=== PATIENT | female | born 1960 ===

== ENCOUNTER 2017-02-24 11:13 | Emergency (ER) | payer OTHER ==
[2017-02-24 11:24] VITALS: BMI 20.5
[2017-02-24 11:28] VITALS: RESP 18; O2SAT 98
[2017-02-24] MEDS ORDERED: TDAP Vaccine 0.5 mL Syr IM ONE (11:59)
--- NOTE | 2017-02-24 12:03 | ED PDOC ---
Arrival/HPI - General Chief Complaint: Abnormal Skin Integrity Time Seen by Provider: 02/24/17 11:58 Historian: Patient - History of Present Illness Narrative History of Present Illness (Text): 02/24/17 11:59 56 y/o female, no pmh, nkda, last tetanus over 10 years ago, post menopausal, c/ o rt. hand 3rd digit finger laceration x 1 hour. Pt. stated that she was cleaning the stove, accidentally sliced on the edge of the metal, sustained laceration and bleeding, no numbness or tinging, no difficulty bending or extending, no rash, no other medical or psychological complaints. Past Medical History - Provider Review Nursing Documentation Reviewed: Yes - Infectious Disease Hx of Infectious Diseases: None - Psychiatric Hx Substance Use: No - Surgical History Other/Comment: Adenoids - Anesthesia Hx Anesthesia: Yes Hx Anesthesia Reactions: No Hx Malignant Hyperthermia: No Family/Social History - Physician Review Nursing Documentation Reviewed: Yes Family/Social History: Unknown Family HX Smoking Status: Never Smoked Hx Alcohol Use: No Hx Substance Use: No Allergies/Home Meds Allergies/Adverse Reactions: Allergies No Known Allergies Allergy (Verified 02/24/17 11:23) Review of Systems - Review of Systems Constitutional: absent: Fatigue, Fevers Respiratory: absent: SOB, Cough Cardiovascular: absent: Chest Pain Gastrointestinal: absent: Abdominal Pain, Diarrhea, Nausea, Vomiting Musculoskeletal: absent: Arthralgias, Back Pain Skin: Laceration. absent: Rash, Pruritis, Skin Lesions, Abscess, Ulcer, Cellulitis Neurological: absent: Headache, Dizziness Physical Exam Vital Signs Reviewed: Yes Vital Signs Temp Pulse Resp BP Pulse Ox 02/24/17 13:13 69 18 128/78 98 02/24/17 11:51 97.6 F 02/24/17 11:28 72 18 131/82 98 Blood Pressure: Normal Pulse: Regular Respiratory Rate: Normal Appearance: Positive for: Well-Appearing, Non-Toxic, Comfortable Pain Distress: Mild Mental Status: Positive for: Alert and Oriented X 3 - Systems Exam Head: Present: Atraumatic, Normocephalic Pupils: Present: PERRL Extroacular Muscles: Present: EOMI Conjunctiva: Present: Normal Respiratory/Chest: Present: Clear to Auscultation, Good Air Exchange. No: Respiratory Distress, Accessory Muscle Use Cardiovascular: Present: Regular Rate and Rhythm, Normal S1, S2. No: Murmurs Abdomen: Present: Normal Bowel Sounds. No: Tenderness, Distention, Peritoneal Signs Back: Present: Normal Inspection Upper Extremity: Present: Other (Rt. hand 3rd digit: visible approx. 1.5cm superficial superficial to intermediate depth noted on the ventral phalanx region on the distal phalanx, no deformity, FROM without limitation, sensation intact, motor 5/5, +radial pulse, capillary refill< 2 seconds, neurovascular intact. ). No: Cyanosis, Edema Lower Extremity: Present: Normal Inspection. No: Edema Neurological: Present: GCS=15, Speech Normal, Motor Func Grossly Intact, Gait Normal, Memory Normal Skin: Present: Warm, Dry, Normal Color. No: Rashes Psychiatric: Present: Alert, Oriented x 3, Normal Insight, Normal Concentration Medical Decision Making ED Course and Treatment: 02/24/17 12:19 -xray -tdap 02/24/17 13:06 -sensation intact, motor 5/5, wound irrigate with normal saline 1000cc, clean with betadine, 1% lidocaine with 1.5cc for digital block of 3rd digit, 5-0 nylon made 5 sutures, hemostasis obtained, good approximation, sensation intact , motor 5/5, wound with gauze dressing, less than 5cc of blood loss. -Discharge home with keflex, motrin, keep the dressing dry and clean, wash with soap and water twice daily after 3 days and apply neosporin as needed, follow up with your own pmd and hand specialist within 2 days, return to the ER for any new or worsening signs or symptoms. - RAD Interpretation Radiology Orders: 02/24/17 11:59 HAND RIGHT 3RD DIGIT (FINGER) [RAD] Stat normal bone xray. Oil Well Directional Surveyor: Radiologist - Medication Orders Current Medication Orders: Discontinued Medications Tetanus/Reduced Diphtheria/Acell Pertussis (Boostrix Vaccine Inj) 0.5 ml IM .ONCE ONE Stop: 02/24/17 12:00 Last Admin: 02/24/17 12:46 Dose: 0.5 ml MAR Immunization Data Document 02/24/17 12:46 RD (Rec: 02/24/17 12:46 RD [facility] [id number][place] Immunization Data Vaccine Information Sheet Given Yes Vaccine Information Sheet Given Date 02/24/17 Immunization Registry Document 02/24/17 12:46 RD (Rec: 02/24/17 12:46 RD [facility] [id number][place] Immunization Registry Consent Date 02/24/17 - PA / SENIOR GAME ADVISOR / Resident Statement /DO has reviewed & agrees with the documentation as recorded. Disposition/Present on Arrival - Present on Arrival Any Indicators Present on Arrival: No History of DVT/PE: No History of Uncontrolled Diabetes: No Urinary Catheter: No History of Decub. Ulcer: No History Surgical Site Infection Following: None - Disposition Have Diagnosis and Disposition been Completed?: Yes Diagnosis: Finger laceration Disposition: HOME/ ROUTINE Disposition Time: 13:08 Patient Plan: Discharge Condition: GOOD Discharge Instructions (ExitCare): Finger Laceration (ED) Additional Instructions: -Discharge home with keflex, motrin, keep the dressing dry and clean, wash with soap and water twice daily after 3 days and apply neosporin as needed, follow up with your own pmd and hand specialist within 2 days, return to the ER for any new or worsening signs or symptoms. Prescriptions: Cephalexin [Keflex] 500 mg PO TID #30 capsule Ibuprofen [Motrin] 600 mg PO QID PRN #30 tab PRN Reason: Other Referrals: PCP,NO [Primary Care Provider] - Follow up with primary Millie Brandon MD [Staff Provider] - Follow up with primary [facility] [place]] - Follow up with primary Forms: [employer] (Slovak), WORK NOTE
[2017-02-24 12:06] VITALS: TEMP 97.6
[2017-02-24 13:17] VITALS: BP 128/78; PULSE 69
--- NOTE | 2017-02-24 13:17 | RAD ---
HISTORY: rt. hand 3rd digit finger laceration ventral COMPARISON: No prior FINDINGS: BONES: Normal. No fracture. JOINTS: Normal. No osteoarthritis. SOFT TISSUE: Normal. OTHER FINDINGS: None . IMPRESSION: Normal Bone Xray.
== END 2017-02-24 13:21 | disposition home or self-care (01) ==
LOC: MERGE 11:13 → ED 11:13
DX: S61.212A Laceration without foreign body of right middle finger without damage to nail, initial encounter (principal); W45.8XXA Other foreign body or object entering through skin, initial encounter; Y93.E9 Activity, other interior property and clothing maintenance; Y92.89 Other specified places as the place of occurrence of the external cause; Z23 Encounter for immunization